=== PATIENT | male | born 1985 | race Caucasian/White ===

== ENCOUNTER 2016-04-28 13:44 | Day surgery (SDC) | payer OTHER ==
[2016-04-28] VITALS (7 sets, daily range): BP systolic 150–165; BP diastolic 99–105; PULSE 60–86; RESP 14–19; O2SAT 98–100
[~2016-04-28] VITALS: Ht 167.6 cm; Wt 58.5 kg
--- NOTE | 2016-04-28 07:48 | PCM.HPANE ---
Patient Data Surgeon Admitting Provider: Attending Provider:Zora Delaney MD Primary Care Physician:Evelyn Rosen DO Other Provider:Folrinda Perdue Anesthesia Reason for Visit Right Hydronephrosis Ht/WT & BMI Height (Feet): 5 Height (Inches): 5.5 Weight (Kilograms): 58.513 Body Mass Index 21.00 Allergies Coded Allergies: No Known Allergies (Unverified , 04/27/16) Past Anesthesia History Anesthesia History: Denies:: Anesthesia Reactions, Malignant Hyperthermia Diabetes History Hx Diabetes?: No MRSA MRSA: No Medications Reported Medications Ondansetron (Zofran)8 Mg Tablet8 Mg PO Q12H PRN For Nausea 04/27/16 Ibuprofen 600 Mg [id number] Mg PO TID PRN For Pain Ref 0 04/27/16 oxyCODONE-Acetaminophen 5-325 mg 1 Each Tablet1 Tab PO Q6H PRN For Pain Ref 0 04/27/16 History History of ENT Problems?: Yes HEENT History: Denies:: Cataracts (S/P LT EYE SURGERY IN CHILDHOOD) Hx of Heart Problems?: No Cardiovascular History: Denies:: Heart Murmur Hypertension Pacemaker Hx of Respiratory Problem?: No Respiratory History: Denies:: Use of C-PAP Machine Hx Neurologic Problems?: No Hx of GI Problems?: Yes Gastrointestinal History: Denies:: Gastroesphageal Reflux (HX PUD) Other GI Pertinent History: C/OF ABD PAIN, N&V (INTERMITTANT),DECREASED APPETITE R/T HYDRONEPHROSIS Hx of Problems?: Yes Other Pertinent History: RT HYDRONEPHROSIS/RT UPJ STENOSIS=CURRENT PROBLEM C/OF RT FLANK PAIN,HEMATURIA,NOCTURIA,URGENCY,FREQUENCY & INCONTINENCE Male Hx: Denies:: Prostate Problems Scrotal Mass Testicular Surgery Skin History: Denies:: History Skin Disorders? Pressure Ulcers Hx Musculoskeletal Problems?: Yes Musculoskeletal History: Denies:: Back Injury (C/OF CHRONIC BACK PAIN) Hx of Psycho/Social Problems?: No Hx Surgeries?: Yes (LT EYE PROCEDURE IN CHILDHOOD) Hx Any Other Health Problems?: Yes Other History: Denies:: Cancer Endocrine Disease (C/OF CHILLS/FEVERS,HOT FLASHES/COLD INTOLERANCE) Hospitalization Thyroid Disease Hx Diabetes: No Stop/Bang S-Snoring: Do You Snore Loudly: No T-Tired: feel tired, fatigued: No O-Obsered: Observed not breath: No P-Blood Pressure: treated: No B- Body Mass Index > 35 kg/m2: No A- Age over 50: No N- Neck Large Circumference: No G- Gender Male: Yes MISSY Total Score: 1 MISSY Risk Assessment: Low Risk, <3 Yes Risk Assessment Category Category 1A: Patient has history of documented sleep apnea, and HAS NOT received any narcotic, sedative or anesthesia administration during this stay. Category 1B: Patient has history of documented sleep apnea, and HAS received any narcotic , sedative or anesthesia administration during this stay Category 2: Patient has SUSPECTED Obstructive Sleep Apnea, and HAS received any narcotic , sedative or anesthesia administration during this stay. Category 3: Patient has SUSPECTED Obstructive Sleep Apnea and HAS NOT received narcotic, sedative or anesthesia administration during this stay. Category 4: Outpatient in Procedural Areas with known sleep apnea or who screen positive for High Risk via the STOP/BANG questionnaire. Exam Exam General Appearance: Alert, Oriented X3, Cooperative, No Acute Distress HEENT/AIRWAY: MP 2 Lungs: Clear to Auscultation, Normal Air Movement Heart: Exam Unremarkable, Regular Rate/Rhythm, No Murmurs/Rubs/Gallops Plan Impression Patient chart reviewed, patient interviewed and anesthestic plan with risks, benefits, and alternatives discussed, and informed consent obtained. Anesthetic Plan: GA Bene/Risks/Altern/Consents: Yes HP Complete Prior to Induction: Yes Other eggs and toast at 0800, surgery delaryed until 1600 Flores Hadley MD Apr 28, 2016 07:48
[~2016-04-28 13:44] MED LIST: IBUP-1827 PO; OXYC1TAB24 PO; ZOF8 PO
[2016-04-28] MEDS ORDERED: Ondansetron 2 mg/mL 2 mL Inj ONE (13:45)
[2016-04-28] MEDS ORDERED: fentaNYL-PF 50 mCg/mL 2 mL Inj ONE (13:45)
[2016-04-28] MEDS ORDERED: Propofol 10,000 mCg/mL 20 mL Inj ONE (13:45)
[2016-04-28] MEDS ORDERED: Dexamethasone 4 mg/mL Inj ONE (13:45)
[2016-04-28] MEDS ORDERED: Lactated Ringer's 1,000 ML IV ONE (13:56)
[2016-04-28] MEDS ORDERED: CeFAZolin 2 Gm/50 mL D5W IV Premix IV ONE (15:00)
[2016-04-28] MEDS ORDERED: Lactated Ringer's 500 ML IV PRN (16:32)
[2016-04-28] MEDS ORDERED: Lactated Ringer's 1,000 ML IV SCH (16:32)
[2016-04-28] MEDS ORDERED: Ondansetron 2 mg/mL 2 mL Inj IVPUSH PRN (16:35)
[2016-04-28] MEDS ORDERED: MetoCLOpramide 5 mg/mL 2 mL Inj IVPUSH PRN (16:35)
[2016-04-28] MEDS ORDERED: fentaNYL-PF 50 mCg/mL 2 mL Inj IVPUSH PRN (16:35)
[2016-04-28] MEDS ORDERED: Belladonna Alk-Opium 60 mg Rectal Suppository RECTAL ONE (16:35)
[2016-04-28] MEDS ORDERED: Dexamethasone 4 mg/mL Inj IVPUSH PRN (16:35)
[2016-04-28] MEDS ORDERED: Atropine 0.4 mg/mL Inj IVPUSH PRN (16:35)
[2016-04-28] MEDS ORDERED: EPHEDrine Sulfate 50 mg/mL Inj IVPUSH PRN (16:35)
[2016-04-28] MEDS ORDERED: hydrALAZINE 20 mg/mL Inj IVPUSH PRN (16:35)
[2016-04-28] MEDS ORDERED: Phenylephrine 10,000 mCg/mL Inj IVPUSH PRN (16:35)
[2016-04-28] MEDS ORDERED: Labetalol 5 mg/mL 4 mL Inj IV PRN (16:35)
[2016-04-28] MEDS ORDERED: HYDROmorphone 1 mg/mL Inj IVPUSH PRN (16:35)
--- NOTE | 2016-04-28 16:49 | PCM.ANEP1 ---
Post Anesthesia Phase 1 PACU Phase 1 Assessment Vital Signs Vital Signs Date Time Temp Pulse Resp B/P Pulse Ox O2 Delivery O2 Flow Rate FiO2 04/28/16 14:09 37.8 86 16 165/101 98 Room Air Anesthetic Administered: GA Level of Alertness: Awake, talking ABRAMS's with Equal Strength: Yes Pain: No Nausea or Vomiting: No Oxygen Delivery: Simple Mask Lungs: Clear to Auscultation, Normal Air Movement Flores Hadley MD Apr 28, 2016 16:49
[2016-04-28] MEDS ORDERED: Ondansetron 8 mg ODT Tablet PO PRN (16:50)
[2016-04-28] MEDS ORDERED: HYDROcodone-APAP 5-325 mg Tablet PO PRN (16:50)
--- NOTE | 2016-04-28 16:55 | PCM.ANEP2 ---
Post Anesthesia Evaluation ASA/CMS Post Anesthesia VS in Patient's Normal Range?: Yes Resp Stable; Airway Patent?: Yes CV Function & Hydration Stable: Yes Mental Status Recovered?: Yes Pain control Satisfactory?: Yes N/V Control Satisfactory?: Yes Flores Hadley MD Apr 28, 2016 16:55
--- NOTE | 2016-04-28 17:01 | DRSVH ---
PROCEDURE: X-RAY RETROGRADE UROGRAPHY INDICATIONS: CYSTO RIGHT STENT PLACEMENT TECHNIQUE: intra-operative images acquired by the Urology service. COMPARISON: [facility], CT, IVP (ABD & PEL WWO CONTRAST), 04/15/2016, 12:22. [facility], U S, RENAL COMPLETE, 04/02/2016, 13:03. [facility], CT, KIDNEY/ URETER/BLADDER, 03/13/2016, 23:12. FINDINGS: Severe right hydronephrosis and stricture seen at the ureteropelvic junction as was noted on prior CT IVP. Otherwise, visualized portions of the right ureter demonstrate normal caliber and t ortuosity distally. 1 cm intraluminal filling defect seen within the mid ureter on one of the images .. Ureteral stent was placed. IMPRESSION: One. Severe right hydronephrosis secondary to ureteral pelvic junction stenosis. 2. Placement of right ureteral stent. 3. 1 cm round intraluminal filling defect seen within one of the images of the ureter which could be related to a gas bubble versus stone. Please correlate with real time examination. Dictated by: Chad Bruno [facility] Interpreted: Michael Sanford MD on 04/28/2016 at 16:57 Transcribed by: MARTHA on 04/28/2016 at 17:00 Approved by: Michael Sanford M.D. on 04/28/2016 at 17:13
--- NOTE | 2016-04-29 14:15 | OP ---
[address] [address] OPERATIVE REPORT PATIENT: CECY CLARK : 1985 MR#: [id number] ADMIT: 04/28/2016 JOB ID: [id number] DATE OF SURGERY: 04/28/2016 PROCEDURE NAME: 1. Cystoscopy. 2. Right-sided retrograde pyelogram. 3. Right-sided double-J stent placement. SURGEON: Zora Delaney MD. ANESTHESIA: General. PREOPERATIVE DIAGNOSIS(ES): 1. Right-sided ureteropelvic junction obstruction with high-grade hydronephrosis. 2. Flank pain on the right. POSTOPERATIVE DIAGNOSIS(ES): 1. Right-sided ureteropelvic junction obstruction with high-grade hydronephrosis. 2. Flank pain on the right. INDICATIONS: Patient is a 31-year-old gentleman evaluated by the Urology service and felt to have a right-sided ureteropelvic junction obstruction symptomatic on the right with some thinning of the renal cortex and very hydronephrotic appearance of the kidney itself. Electing temporizing double-J stent placement. PROCEDURE IN DETAIL: After appropriate informed consent was obtained, patient was brought to the operating room. He received IV antibiotics prior to onset of procedure. SCD were placed. Adequate general anesthesia induced. He was carefully placed in dorsal position. All pressure points carefully padded. Cleaned, prepped, and draped in the usual sterile fashion. Rigid scope was introduced into the patient's bladder, which was surveyed in a systematic fashion. Found to be normal in appearance. Right-sided ureteral orifice was cannulated with an open-ended catheter. Retrograde pyelogram revealed normal distal ureter to a point up at the ureteropelvic junction where there was cessation of flow and ultimately flowing into a very hydronephrotic kidney. A wire easily passed level of obstruction. There was no hematuria. We then advanced a 22-Persian double-J stent over the wire under fluoroscopic and direct visual guidance into good position with a curl in renal pelvis seen fluoroscopically and a curl in the patient's bladder seen direct visually. There was good efflux from the right kidney once this was placed. The patient's bladder was drained. He was awakened, taken in stable condition to the postanesthesia care unit.
[2016-06-29] MEDS ORDERED: TAMS0.4C29 PO (16:15)
[2016-06-29] MEDS ORDERED: LOSA25TA21 PO (16:15)
== END 2016-04-28 23:59 | disposition home or self-care (01) ==
LOC: SAS 13:44
PROVIDERS: ATTEND Urology
DX: N13.1 Hydronephrosis with ureteral stricture, not elsewhere classified (principal); R10.9 Unspecified abdominal pain; M54.6 Pain in thoracic spine; M54.10 Radiculopathy, site unspecified; Z87.891 Personal history of nicotine dependence
CPT/HCPCS: 52332; 74420; C2617; J0690; J1100; J2250; J2405; J3010; J7120; Q9967